=== PATIENT | female | born 1990 | race Caucasian/White ===

== ENCOUNTER → 2017-08-16 | Outpatient (CLI) | payer BC ==
[2017-08-16 16:41] LABS: HEMATOCRIT 28.5 % (37-47)
[2017-08-16 18:02] LABS: URINE APPEARANCE CLEAR (CLEAR); URINE BILIRUBIN NEG (NEG); URINE COLOR YELLOW; URINE NITRITE NEG (NEG); URINE SPECIFIC GRAVITY 1.012 (1.000-1.030); UROBILINOGEN NEG (NEG)
[2017-08-16 18:04] LABS: MANUAL MICROSCOPIC REQUIRED? NO; REVIEW REQ? NO
[2017-08-16 18:58] LABS: GTGD 50 Grams
== END | disposition home or self-care (01) ==
LOC: C.LAB1850 14:47
PROVIDERS: ATTEND Obstetrics & Gynecology
DX: Z34.02 Encounter for supervision of normal first pregnancy, second trimester (principal)

== ENCOUNTER → 2017-09-12 | Outpatient (CLI) | payer BC ==
[2017-09-12 17:28] LABS: HEMATOCRIT 28.8 % (37-47); MEAN CELL VOLUME 91.1 fL (80-100); MEAN CORPUSCULAR HEMOGLOBIN 29.7 pg (25-34); MEAN CORPUSCULAR HGB CONC 32.6 g/dl (32-36); MEAN PLATELET VOLUME 10.3 fL (7.4-10.4); PLATELET COUNT 177 K/uL (130-400); RED BLOOD COUNT 3.16 M/uL (4.2-5.4); WHITE BLOOD COUNT 9.68 K/uL (4.8-10.8)
== END | disposition home or self-care (01) ==
LOC: C.LAB1850 16:18
PROVIDERS: ATTEND Obstetrics & Gynecology
DX: O28.1 Abnormal biochemical finding on antenatal screening of mother (principal); Z3A.00 Weeks of gestation of pregnancy not specified

== ENCOUNTER → 2017-09-16 | Outpatient (CLI) | payer BC ==
[2017-09-19 23:31] LABS: HCT 30.7 % (35.0-45.0); HEMOGLOBIN A2 2.5 % (1.8-3.5); MCH 30.9 pg (27.0-33.0); MCV 94.8 FL (80.0-100.0); RBC 3.24 Mill/uL (3.80-5.10); RDW 14.8 % (11.0-15.0)
== END | disposition home or self-care (01) ==
LOC: C.LAB1850 16:15
PROVIDERS: ATTEND Obstetrics & Gynecology
DX: O28.1 Abnormal biochemical finding on antenatal screening of mother (principal)

== ENCOUNTER 2017-10-25 01:43 | Inpatient (IN) | payer BC ==
[~2017-10-25] VITALS: Ht 170.2 cm; Wt 79.5 kg
[2017-10-25] MEDS ORDERED: LACTATED RINGER'S 1000ML 1,000 ML IV SCH (02:13)
[2017-10-25] MEDS ORDERED: LACTATED RINGER'S 1000ML 1,000 ML IV PRN (02:13)
[2017-10-25] MEDS ORDERED: FENTANYL CITRATE INJ 50 MCG/1 ML 2 ML VIAL ONE (02:14)
[2017-10-25] MEDS ORDERED: BUPIVACAINE 0.25% 30 ML VIAL ONE (02:14)
[2017-10-25] MEDS ORDERED: FENTANYL 2MCG/ML ROPIV 1.25MG/ML 100ML BAG EPI ONE (02:14)
[2017-10-25] MEDS ORDERED: EpHEDrine SULFATE INJ 50 MG/ML AMP ONE (02:14)
[2017-10-25 02:33] LABS: HEMATOCRIT 35.8 % (37-47); MEAN CELL VOLUME 90.6 fL (80-100); MEAN CORPUSCULAR HEMOGLOBIN 29.1 pg (25-34); MEAN CORPUSCULAR HGB CONC 32.1 g/dl (32-36); PLATELET COUNT 173 K/uL (130-400); RED BLOOD COUNT 3.95 M/uL (4.2-5.4); WHITE BLOOD COUNT 11.63 K/uL (4.8-10.8)
[2017-10-25] MEDS ORDERED: LACTATED RINGER'S 1000ML 500 ML IV PRN (03:46)
[2017-10-25] MEDS ORDERED: NALOXONE HCL INJ 1 MG in SODIUM CHLORIDE 0.9% 1000ML 1,000 ML IV PRN (03:46)
[2017-10-25] MEDS ORDERED: DiphenhydrAMINE HCL 50 MG/ML VIAL IV PRN (04:00)
[2017-10-25] MEDS ORDERED: FENTANYL 2MCG/ML ROPIV 1.25MG/ML 100ML BAG EPI PRN (04:00)
[2017-10-25] MEDS ORDERED: NALBUPHINE HCL INJ 10 MG/ML AMP IV PRN (04:00)
[2017-10-25] MEDS ORDERED: EpHEDrine SULFATE INJ 50 MG/ML AMP IV PRN (04:00)
[2017-10-25] MEDS ORDERED: NALOXONE HCL INJ 0.4 MG/1 ML VIAL/CARP IV PRN (04:00)
[2017-10-25 04:08] VITALS: Ht 170.2 cm; Wt 79.5 kg
[2017-10-25] MEDS ORDERED: PREN-83 (04:09)
[2017-10-25] MEDS ORDERED: PATIENT'S ALLERGY INFO NEEDS ENTERED SCH (04:15)
[2017-10-25] MEDS ORDERED: OXYTOCIN 30 UNITS/500ML NSS IV ONE (07:59)
[2017-10-25] MEDS ORDERED: ACETAMINOPHEN/CODEINE 300/30MG TAB PO PRN (11:30)
[2017-10-25] MEDS ORDERED: ACETAMINOPHEN 325 MG TAB PO PRN (11:30)
[2017-10-25] MEDS ORDERED: SUPERCREAM 0.870 % 15GM JAR EXT PRN (11:30)
[2017-10-25] MEDS ORDERED: LANOLIN OINT EXT PRN ×2 (11:30)
[2017-10-25] MEDS ORDERED: BENZOCAINE 20% AER SPR 82.5 GM CAN EXT PRN (11:30)
[2017-10-25] MEDS ORDERED: OXYTOCIN 30 UNITS/500ML NSS IV PRN (11:30)
[2017-10-25] MEDS ORDERED: HYDROCORTISONE ACETATE 25 MG SUPP PR PRN (11:30)
--- NOTE | 2017-10-25 11:53 | DELIVERY SUMMARY ---
DATE OF OPERATION: 10/25/2017 FINDINGS: Viable female with Apgars of 8 and 9. Baby delivered spontaneously over midline second degree laceration with bilateral second degree periurethral tears. Cord gases and cord blood samples obtained. Placenta delivered spontaneously. Lacerations were repaired in routine fashion. ESTIMATED BLOOD LOSS: 300 mL. LABOR NOTE: The patient is a 27-year-old 1, para 0 with an EDC of 04 November at 38+ weeks gestational age presented to labor and delivery in active labor. The patient had spontaneous rupture of membranes with subsequent onset of contractions. The patent's course remarkable for anemia evaluated by hematology. Hematology did not feel aggressive iron resuscitation was indicated. Laboratory for the showed blood type of O negative, antibody negative. She received RhoGAM on 16 August. Hepatitis B negative. She declined a quad screen. She had a normal 1-hour Glucola at 16 and a 28 weeks and a negative third trimester beta strep culture. Upon admission, the patient was admitted. She received an epidural from the anesthesia. Delivering physician assumed care at the initiation of her second stage. The patient pushed for approximately 2 hours delivering the viable female infant. Cord was clamped and cut. Cord gases, cord blood samples obtained. Placenta was delivered spontaneously. Inspection of the perineum showed bilateral second degree periurethral tears and a midline second degree laceration. These were all repaired with 4-0 Vicryl in a routine fashion. Estimated blood loss 300 mL. Sponge and needle count was correct. I attest to the content of the Intraoperative Record and any orders documented therein. Any exception s are noted below.
--- NOTE | 2017-10-25 11:57 | Anesthesia Procedure Note ---
Anesthesia Epidural Removal Nt Date & Time Oct 25, 2017 at 11:57 Vital Signs Pain Intensity: 0.0 Notes Mental Status: alert / awake / arousable, participated in evaluation Nausea / Vomiting: adequately controlled Pain: adequately controlled Airway Patency, RR, SpO2: stable & adequate BP & HR: stable & adequate Hydration State: stable & adequate Neuraxial Anesthesia: was administered Anesthetic Complications: no major complications apparent, pt satisfied with anesthetic care Epidural: removed without complications, with tip intact
[2017-10-25 13:30] VITALS: BP 111/69; PULSE 80; TEMP 36.8; O2SAT 96
[2017-10-25] MEDS: IBUPROFEN 600 MG TAB PO PRN ×3 (13:39→21:26)
[2017-10-25 15:30] VITALS: BP 120/74; PULSE 88; TEMP 36.7
[2017-10-25 18:45] VITALS: BP 111/70; PULSE 82; TEMP 36.6
[2017-10-25] MEDS: DOCUSATE SODIUM 100 MG CAP PO SCH (21:24)
[2017-10-26 00:55] VITALS: BP 105/56; PULSE 62; TEMP 36.6
[2017-10-26 04:30] VITALS: BP 106/64; PULSE 76; TEMP 36.5
[2017-10-26] MEDS: IBUPROFEN 600 MG TAB PO PRN ×3 (04:33→13:18)
[2017-10-26 07:03] LABS: HEMATOCRIT 27.2 % (37-47)
--- NOTE | 2017-10-26 07:32 | Progress Note ---
Subjective Oct 26, 2017. Subjective conversation w/ patient, physical exam, chart review, lab review Ambulation: ambulating normally Voiding: no voiding problems Passing Gas: Yes Diet Tolerance: Regular Diet Lochia: Moderate Feeding Type: Bottle Feeding Pain: controlled Review of Systems Respiratory: No shortness of breath Cardiac: No chest pain Abdomen: No nausea, No vomiting Female : No dysuria Objective Vital Signs Date Time Temp Pulse Resp B/P (MAP) Pulse Ox O2 Delivery O2 Flow Rate FiO2 10/26/17 04:30 36.5 76 16 106/64 (78) Room Air 10/26/17 00:55 Room Air 10/26/17 00:55 36.6 62 16 105/56 (72) Room Air 10/25/17 18:45 36.6 82 20 111/70 (84) Room Air 10/25/17 15:30 Room Air 10/25/17 15:30 36.7 88 20 120/74 (89) Room Air 10/25/17 13:30 96 Room Air 10/25/17 13:30 36.8 80 20 111/69 (83) 96 Room Air Physical Exam General Appearance: WELL-APPEARING, WD/WN, NO APPARENT DISTRESS Respiratory/Chest: lungs clear, normal breath sounds, no respiratory distress Cardiovascular: regular rate, rhythm Abdomen: normal bowel sounds, soft Fundus: Firm, Tender (appropriately tender), Relation to Umbilicus (1 below U) Extremities: non-tender, normal inspection Laboratory Results Last 24 Hours Test 10/26/17 06:50 Hemoglobin 9.0 g/dL Hematocrit 27.2 % Assessment and Plan Post- Day#: 1 Continue Routine Care: Vital signs reviewed and wnl. Hgb reviewed 11.5 on admission, (9.0 today). Stable. Blood type O -, GBS -, RI. Pt doing well clinically. Encourage ambulation, . Resume regular diet. Control pain with motrin/tylenol. Monitor lochia. Continue routine post care. Anticipate discharge tomorrow. ALONDRA OSBORN FMR PGY 1. Resident Physician Supervision Note: I interviewed and examined the patient. Discussed with Dr. Osborn and agree with findings and plan as documented in the note. Any exceptions or clarifications are listed here: Doing well, may be interested in d/c later this PM, will re-access then. Documented By: King Mustafa Resident Tracking Resident Involvement: Resident Care Provided Care Provided: OB Delivery
[2017-10-26] MEDS: DOCUSATE SODIUM 100 MG CAP PO SCH (07:36)
--- NOTE | 2017-10-26 07:56 | Discharge Instructions ---
Discharge Instructions Date of Service Oct 26, 2017. Admission Reason for Admission: LABOR Discharge Discharge Diagnosis / Problem: Spontaneous Vaginal Delivery Discharge Goals Goal(s): Routine recovery after delivery Medications Continue Dispensed Medications: supercream, dermaplast, tucks, lansinoh Activity Recommendations Activity Limitations: per Instructions/Follow-up section . Instructions / Follow-Up Instructions / Follow-Up ACTIVITY RECOMMENDATIONS: * Gradual return to full activity over the next 2-3 weeks. * No lifting - nothing heavier than baby over the next 2-3 weeks. * Do not engage in vigorous exercise, sexual activity or sports until cleared by your physician. * Do not drive or operate any motorized equipment until cleared by your physician. * You may shower/bathe daily. MEDICATIONS: For discomfort or pain, you may use Acetaminophen (Tylenol), Ibuprofen (Advil), or Naproxen (Aleve) following the package directions. For constipation you may use Colace following the package directions. BREAST CARE: If you are not breast feeding: * Wear a supportive bra 24 hours a day for one to two weeks. * Avoid stimulating your breasts and nipples as much as possible during the first few weeks after delivery. * When taking a shower, have the warm water hit your back, not breasts. * When your breasts feel full, apply ice packs. Usually three to four times a day helps ease the discomfort. * Take a mild pain medication (Tylenol / Motrin) when you are uncomfortable. If breast feeding: * Use breast milk to lubricate nipples. Lansinoh cream may be used for sore nipples. You do not need to remove cream prior to breast feeding. If using a different brand of cream, check the label for directions regarding removal of cream prior to nursing. * Wear a supportive bra. * If having problems with breasts or breast feeding, call a contract consultant or your health care provider. EPISIOTOMY CARE: After delivery, if you have an episiotomy (stitches), the following steps will ease discomfort and aid healing. * For the first 24 hours after delivery, place ice packs next to your episiotomy to help reduce swelling. * After the first 24 hour-period, sitz baths, either portable or in the tub, are suggested. A shower with a shower arm sprayed over the episiotomy may be comforting. * Eleanor care should be done after each voiding and bowel movement. Squirt warm water from a plastic bottle over the perineum (region of the body between the anus and urinary opening) and pat dry. * Use Dermoplast to ease discomfort. Shake container. [place] directly over the episiotomy. Place a Tucks on a clean sanitary pad next to your episiotomy. SPECIAL CARE INSTRUCTIONS: When you are discharged from the hospital, it is important for you to follow the instructions listed below: * During the first week at home, you should be able to care for yourself and your baby. In addition, the usual light household activities are encouraged. * Limit your activities to the way you feel. Do not try to clean the house or move furniture. Be sensible. * If you actively engage in sports and have done so up until the time of your delivery, you may resume these activities as soon as you feel able. This may take up to one month or even longer. Use good judgment. * Continue to take your vitamins for at least six weeks after the of your baby. * Your diet need not be limited unless you were on a special diet before your delivery. Breast-feeding mothers need around 2500 calories per day and at least 64-80 ounces of fluid per day (8 to 10 glasses). * You should eat foods from the four major food groups. Crash diets or fad diets are to be avoided. Eating lean meats, fresh fruits and vegetables, low-fat dairy products, high fiber foods and a regular exercise program, will help you get back to your pre- weight without putting your health at risk. * Constipation is sometimes a problem after delivery. Take a mild laxative as needed. If breast feeding, Milk of Magnesia is acceptable to use. You may use a suppository or Fleets enema if no episiotomy. * A daily shower or tub bath is suggested. Be sure to thoroughly and gently dry the perineum. * A bloody vaginal discharge will usually continue until around four weeks post . A small amount of bleeding may continue for as long as six weeks. Vaginal discharge changes from the bright red bleeding after delivery to pink then brownish and finally yellowish-pink before becoming white and disappearing. * Bleeding may increase with activity. Your first period may come in 4-8 weeks. If you are breast feeding, your period may be delayed even longer. * [address] (sex) can begin whenever both you and your partner feel comfortable and do not have any form of genital infection. It is recommended that you wait at least six weeks for internal and external healing to occur. If you have questions, please talk to your health care practitioner. A condom should be used to prevent infection and . * Foreplay, gentle intercourse and lubrication is very important the first several times to prevent pain. A water-based lubricant such as K-Y jelly or Astroglide may be used. * If you have RH negative blood and your baby is RH positive, you will receive RHOGAM by injection prior to discharge. The nurse will give you a card to keep with you that has the date and place that you received RHOGAM after delivery. * During your care, you had a Rubella screen done to check for the presence of rubella antibodies in your blood. If your test was negative, you will receive a Rubella vaccine prior to discharge. This vaccine may cause a fever, soreness at the injection site and flu-like symptoms. If these symptoms persist, notify your health care practitioner. is not advised for one month after a Rubella vaccine. * Verbalizes understanding of car seat law as reviewed with patient nursing. * Car Seat hand-out given and reviewed with patient by nursing. * Shaken baby information reviewed with patient by nursing. Call you doctor if: * Heavy bleeding (saturating several pads an hour) or passing clots the size of your fist. * A fever >101 degrees F (38.3 degrees C) on two occasions four hours apart and /or chills. * Unusual pain in the pelvic or vaginal areas. * "Baby Blues" lasting longer than two weeks. If you have any questions or concerns, call your health care practitioner at . FOLLOW UP VISIT: * Please call the office at to schedule a 6 week examination. It is important you keep this appointment. It is important for you to make arrangements for either yearly or twice yearly check-ups thereafter. Current Hospital Diet Patient's current hospital diet: Regular Diet Discharge Diet Recommended Diet: Regular Diet Pending Studies Studies pending at discharge: no Medical Emergencies . Who to Call and When: Medical Emergencies: If at any time you feel your situation is an emergency, please call [phone] immediately. . Non-Emergent Contact Non-Emergency issues call your: Primary Care Provider . . "Provider Documentation" section prepared by Georgiana Osborn. . VTE Core Measure Inpt VTE Proph given/why not?: Treatment not indicated
[2017-10-26 08:00] VITALS: BP 104/71; PULSE 103; TEMP 36.3
[2017-10-26] MEDS ORDERED: PRENATAL VITAMIN TAB PO SCH (08:00)
[2017-10-26 11:45] VITALS: BP 102/65; PULSE 69; TEMP 36.7
[2017-10-26 15:10] VITALS: BP 103/60; PULSE 73; TEMP 36.6
[2017-10-26 17:00] VITALS: BP_DIAS 60; PULSE 73; TEMP 36.6
[2017-10-26] MEDS ORDERED: BISACODYL 5 MG TABEC PO SCH (20:00)
[2017-10-27] MEDS ORDERED: FERROUS SULFATE 325 MG TAB PO SCH (08:00)
== END 2017-10-26 17:05 | disposition home or self-care (01) | DRG 775 ==
LOC: C.OPB 01:43 → C.LD 01:43 → C.OPB 02:14 → C.LD 02:14 → C.OBG 13:19
PROVIDERS: ADMIT Obstetrics & Gynecology; ATTEND Obstetrics & Gynecology
PROC: 0KQM0ZZ Repair Perineum Muscle, Open Approach (ICD-10-PCS; principal; 2017-10-25)
PROC: 10E0XZZ Delivery of Products of Conception, External Approach (ICD-10-PCS; principal; 2017-10-25)
PROC: 0TQDXZZ Repair Urethra, External Approach (ICD-10-PCS; principal; 2017-10-25)
DX: O70.1 Second degree perineal laceration during delivery (principal); O71.82 Other specified trauma to perineum and vulva; Z37.0 Single live birth; Z3A.38 38 weeks gestation of pregnancy

== ENCOUNTER 2020-02-15 14:30 | Inpatient (IN) ==
[2020-02-15] MEDS ORDERED: OXYTOCIN 30 UNITS/500 ML BAG IV PRN (14:42)
[2020-02-15] MEDS ORDERED: LACTATED RINGER'S 1,000 ML IV PRN (14:42)
[2020-02-15 15:16] LABS: Hematocrit (blood only) 31.3 % (37-47); Mean Corpuscular Hemoglobin 29.1 pg (25-34); Mean Platelet Volume 9.7 fL (7.4-10.4); Platelet Count 284 K/uL (130-400); RDW Coefficient of Variation 13.1 % (11.5-14.5); RDW Standard Deviation 43.8 fL (36.4-46.3); Red Blood Count 3.44 M/uL (4.2-5.4); White Blood Count 8.03 K/uL (4.8-10.8)
[2020-02-15] MEDS ORDERED: ePHEDrine sulfate 50 MG/ML AMP ONE (15:32)
[2020-02-15] MEDS ORDERED: fentaNYL citrate 100 MCG/2 ML VIAL ONE (15:33)
[2020-02-15] MEDS ORDERED: BUPIVACAINE 0.25% 30 ML VIAL ONE (15:33)
[2020-02-15] MEDS ORDERED: fentaNYL 2MCG/ML ROPIV 1.25MG/ML 100 ML BAG EPI ONE (15:34)
--- NOTE | 2020-02-15 15:42 | Anesthesiology Consultation ---
Date of Service February 15, 2020 Assessment & Plan Chart Review Chart Review: Acceptable Risk for Surgery Consults Requested none ASA ASA2E Proposed Anesthesia Anesthesia Type: CSE Risk / Benefits Reviewed With: PT / POA / Parent / Guardian, Accepts Plan and Informed Consent Obtained History Height/Weight Height: 5 ft 7 in Weight: 74.843 kg Allergies Allergy/AdvReac Type Severity Reaction Status Date / Time No Known Drug Allergies Allergy Verified 02/11/20 16:56 Medications Home Medications Medication Instructions Recorded Confirmed Last Taken prenat.vits,karrie,drr-wbic-assmh 1 tab PO DAILY 07/20/19 02/15/20 Unknown Active Medications Generic Name Dose Route Start Last Admin Trade Name Freq PRN Reason Stop Dose Admin Lactated Ringer's 1,000 mls @ 125 mls/hr 02/15/20 14:42 02/15/20 14:45 Lr IV 02/17/20 14:41 999 mls/hr .Q8H PRN Administration L&D Protocol Protocol NPO Date Last Intake of Fluids: 02/15/20 Time Last Intake of Fluids: 14:30 Date Last Intake of Solids: 02/15/20 Time Last Intake of Solids: 11:00 Last Intake of Solids Comment: Chx nugget Past Medical History Medical History History of anemia History of varicella vaccination Hx of migraine headaches Need for rhogam due to Rh negative mother Exercise / Class Metabolic Activity II 4-5 Yardwork/Stairs/Walk up hill Past Family History Family History Mother Hyperthyroidism Past Surgical History Surgical History S/P anterior cruciate ligament surgery S/P wisdom tooth extraction Past Anesthesia History No Hx of Anesthesia Complications and No Family Hx of Anesthesia Complications History of PONV No Hx of PONV and No Hx of Motion Sickness Social History Smoking Status: Never smoker Hx Alcohol Use: No Hx Substance Use: No substance use type: does not use Physical Exam Vital Signs Last Vital Signs Temp 37.1 C 02/15/20 14:50 Pulse 83 02/15/20 15:23 Resp 22 02/15/20 15:00 BP 140/64 02/15/20 15:23 Pulse Ox 89 L 02/15/20 15:14 ENMT Mouth: no TMJ abnormality Thyromental Distance: > or= 3.5 Finger Breadths Mallampati Class: II Neck normal visual inspection and trachea midline; neck extension not limited Respiratory normal respiratory effort Auscultation: lungs clear to auscultation bilaterally Cardiovascular Rate/Rhythm: regular rate and regular rhythm Heart Sounds: no murmur Musculoskeletal Spine: normal cervical ROM Extremities: full ROM of extremities Neurologic moves all extremities Psychiatric Orientation: alert and oriented x 3 Testing Laboratory Results 02/15/20 15:01
[2020-02-15 15:43] LABS: Mean Corpuscular Hgb Conc 31.9 g/dL (32-36)
[2020-02-15] MEDS ORDERED: DiphenhydrAMINE HCL 50 MG/ML VIAL IV PRN (16:39)
[2020-02-15] MEDS ORDERED: NALBUPHINE HCL INJ 10 MG/ML AMP IV PRN (16:39)
[2020-02-15] MEDS ORDERED: ONDANSETRON INJ 2 MG/ML 2 ML VIAL IV PRN (16:39)
[2020-02-15] MEDS ORDERED: ePHEDrine sulfate 50 MG/ML AMP IV PRN (16:39)
[2020-02-15] MEDS ORDERED: NALOXONE HCL 0.4 MG/1 ML VIAL/CARP IV PRN (16:39)
[2020-02-15] MEDS ORDERED: NALOXONE HCL 1 MG in SODIUM CHLORIDE 0.9% 1000ML 1,000 ML IV PRN (16:39)
[2020-02-15] MEDS ORDERED: PROMETHAZINE HCL 25 MG in SODIUM CHLORIDE 0.9% 50 ML IV PRN (16:39)
--- NOTE | 2020-02-15 16:39 | Anesthesiology Progress Note ---
Date of Service February 15, 2020 Anesthesia Post Procedure Vital Signs Vital Signs: Temp Pulse Resp BP Pulse Ox 02/15/20 16:35 82 121/73 02/15/20 16:33 87 114/67 02/15/20 16:31 87 123/71 99 02/15/20 16:29 133 H 100/42 L 02/15/20 16:27 86 115/69 02/15/20 16:26 84 100 02/15/20 16:25 87 116/59 L 02/15/20 16:23 82 123/63 02/15/20 16:21 82 122/59 L 98 02/15/20 16:17 101 H 122/67 02/15/20 16:16 93 H 99 02/15/20 16:15 81 121/65 02/15/20 16:13 90 118/65 02/15/20 16:11 85 123/66 99 02/15/20 16:08 97 H 128/59 L 02/15/20 16:07 73 91 02/15/20 16:06 74 121/61 99 02/15/20 16:03 96 H 116/56 L 02/15/20 16:01 102 H 127/74 98 02/15/20 15:57 87 89 L 02/15/20 15:56 106 H 99 02/15/20 15:51 97 H 97 02/15/20 15:46 97 H 99 02/15/20 15:23 83 140/64 02/15/20 15:14 112 H 89 L 02/15/20 15:11 110 H 87 L 02/15/20 15:09 105 H 81 L 02/15/20 15:06 90 100 02/15/20 15:01 90 100 02/15/20 15:00 22 02/15/20 14:56 104 H 100 02/15/20 14:51 100 H 100 02/15/20 14:50 37.1 C 18 02/15/20 14:48 36.9 C 20 02/15/20 14:46 103 H 100 Notes Mental Status: alert / awake / arousable and participated in evaluation Nausea / Vomiting: adequately controlled Pain: adequately controlled Airway Patency, RR, SpO2: stable & adequate BP & HR: stable & adequate Hydration State: stable & adequate Neuraxial Anesthesia: was administered and see Notes below (CSE/epidural dosing just starting to resolve) Anesthetic Complications: no major complications apparent and Pt Satisfied with anesthetic care Notes:
--- NOTE | 2020-02-15 16:59 | Delivery Summary ---
Vaginal Delivery Summary Date of Service February 15, 2020 Vaginal Delivery Summary DIAGNOSES: 1. Pena intrauterine at 37wk 1d gestation. 2. Spontaneous onset of labor. 3. Group B Streptococcus Neg. PROCEDURE: Spontaneous vaginal delivery without laceration. SURGEON: Keshia Zamudio MD. SUPERVISOR CAP AND HAT PRODUCTION: None. ESTIMATED BLOOD LOSS: 250 mL. COMPLICATIONS: None. PLACENTA: Spontaneous and intact with a 3-vessel cord. DISPOSITION: Stable to labor and delivery. DESCRIPTION: The patient pushed well and brought the head to in OA position. The 's head was allowed to deliver with contraction force and no further active pushing, with the perineum protected during this time. The shoulders delivered easily with a maternal pushing effort. There was no nuchal cord. The right shoulder was anterior. The shoulders and body delivered without any difficulty, and the infant was placed on the maternal abdomen. It was vigorous and moving all extremities, and making respiratory efforts. The cord was doubly clamped by the MD and then cut by the FOB. Gentle traction on the umbilical cord met with absolutely no resistance, and the cord appeared to terminate in membrane without any associated placental tissue, suspicious for velamentous insertion. Fundal massage and observation were alternated for 20 minutes without any progress towards delivery of the placenta. Bedside ultrasound showed the placenta at the fundus, without any collection of blood behind it or any signs of from the uterus. The cervix, vagina and perineum were examined and were found to be without defect requiring repair. Lochia was small. A decision was made to request an epidural be placed to allow for attempt of bedside D&C under ultrasound guidance for placental extraction. See separate operative report for details.
--- NOTE | 2020-02-15 17:05 | Operative Report ---
PG Post Operative Report Pre & Post Diagnosis Retained placenta I identified the patient and participated in the time-out.: Yes Procedure Ultrasound guided D&C Surgeon Keshia Zamudio MD Contact Officer None Estimated Blood Loss 50 Findings Consistent with Post-Op Diagnosis Specimens Placenta Anesthesia Type Labor Epidural Complications none Disposition Accompanied Patient To Recovery: Yes Disposition: L&D Description of Procedure Mary remained in her labor room after delivery, with known retained placenta. She was given a spinal/epidural by Dr. Grimm and tested to ensure adequate anesthesia. The ultrasound was used to confirm the placenta remained firmly attached at the fundus towards patient R side. Gentle manual exploration revealed it was not possible to grasp and remove the placenta. A peterson speculum was used to visualize the cervix, whose anterior lip was grasped using a ring forcep. Watching on US, the banjo curette was introduced to the fundus, and used to make single passes along the uterine wall, retrieving multiple pieces of placenta and membrane of various sizes, ranging from shreds of membrane only to pieces of obvious placenta that were baseball-sized. This was continued until good cry on all lee and ultrasound showed a thin EL / empty cavity, and the uterus was well contracted. Lochia remained minimal. Patient was in stable condition in L&D at the end of the procedure. I attest to the content of the Intraoperative Record and any orders documented therein. Any exceptions are noted below.
[2020-02-15] MEDS ORDERED: AMPICILLIN/SULBACTAM SOD 3,000 MG in 0.9 % SODIUM CHLORIDE 100 ML IV ONE (17:15)
[2020-02-15] MEDS ORDERED: SUPERCREAM 0.870% 15 GM JAR EXT PRN (17:52)
[2020-02-15] MEDS ORDERED: ACETAMINOPHEN 325 MG TAB PO PRN (17:52)
[2020-02-15] MEDS ORDERED: BENZOCAINE 20% AER SPR 82.5 GM CAN EXT PRN (17:52)
[2020-02-15] MEDS ORDERED: HYDROCORTISONE ACETATE 25 MG SUPP PR PRN (17:52)
[2020-02-15] MEDS ORDERED: DIPHTHERIA/TETANUS/PERTUSSIS 0.5 ML SYR/VIAL IM ONE (17:52)
[2020-02-15] MEDS ORDERED: OXYCODONE/ACETAMINOPHEN 5mg/325mg TAB PO PRN (17:52)
[2020-02-15] MEDS: DOCUSATE SODIUM 100 MG CAP PO SCH (21:02)
[2020-02-15] MEDS: IBUPROFEN 600 MG TAB PO PRN (21:04)
--- NOTE | 2020-02-15 21:33 | Anesthesia Procedure Note ---
Date of Service February 15, 2020 Anesthesia Post Epidural Note Vital Signs Vital Signs: Temp Pulse Resp BP Pulse Ox 37 C 74 18 118/73 98 02/15/20 19:40 02/15/20 19:40 02/15/20 19:40 02/15/20 19:40 02/15/20 18:41 Notes Mental Status: alert / awake / arousable and participated in evaluation Nausea / Vomiting: adequately controlled Pain: adequately controlled Airway Patency, RR, SpO2: stable & adequate BP & HR: stable & adequate Hydration State: stable & adequate Neuraxial Anesthesia: was administered and sensory block resolved Anesthetic Complications: no major complications apparent and Pt Satisfied with anesthetic care Epidural: Removed without complications and With tip intact
--- NOTE | 2020-02-16 06:01 | Obstetrical Progress Note ---
Date of Service <Esther Rosas DO - Last Filed: 02/16/20 06:45> February 16, 2020 Assessment & Plan <Esther Rosas DO - Last Filed: 02/16/20 06:45> (1) Encounter for care and examination after delivery: 29 yo PPD#1 following and D+C for retained placenta. No complaints this am and doing well. - Will continue routine care. - Following d/c will have appointment with Dr. Zamudio. Subjective <Esther Rosas - Last Filed: 02/16/20 06:45> 29 yo female ; PPD # 1 following vaginal delivery at 37.2weeks; doing well this AM; no abdominal cramping/pain; voiding well; tolerating meals overnight, able to ambulate some within the room. Some persistent spotting this morning but improved from yesterday. Some cramping in her abdomen intermittently. Is bottle feeding which is going well. Review of Systems Constitutional: denies fever, chills, sweats, headache Respiratory: denies SOB, difficulty breathing Cardiac: denies CP, chest palpitations, chest pressure Breast: denies breast pain : denies dysuria Physical Exam <Esther Rosas DO - Last Filed: 02/16/20 06:45> General: patient is alert and oriented, in NAD Cardiac: +S1/S2, no murmurs rubs or gallops Respiratory: lungs CTA b/l, anteriorly and posteriorly, no wheezes rales or rhonchi, no increased work of breathing, symmetric chest rise, no respiratory distress Abdomen: soft, NT, +bowel sounds Uterus: uterine fundus firm, palpable below the level of the umbilicus Lower Extremities: no LE edema or swelling, no deep calf pain, Gosia's sign negative b/l Results & Data <DO Jeannie Zaragoza Last Filed: 02/16/20 06:45> Vital Signs (Past 12 Hours) Vital Signs Temp Pulse Pulse Resp BP BP Pulse Ox 02/16/20 05:40 36.5 C 66 16 106/66 02/15/20 23:40 36.8 C 67 18 115/72 02/15/20 19:40 37 C 74 18 118/73 02/15/20 18:56 86 114/70 02/15/20 18:41 106 H 115/72 98 02/15/20 18:36 96 H 98 02/15/20 18:31 94 H 98 02/15/20 18:27 96 H 118/74 02/15/20 18:26 36.8 C 86 20 98 02/15/20 18:21 85 98 02/15/20 18:16 86 98 02/15/20 18:12 97 H 115/58 L 02/15/20 18:11 98 H 98 02/15/20 18:06 82 98 Laboratory Results Laboratory Results - last 24 hr 02/15/20 15:01 WBC 8.03 RBC 3.44 L Hgb 10.0 L Hct 31.3 L MCV 91.0 MCH 29.1 MCHC 31.9 L RDW Std Deviation 43.8 RDW Coeff of Caryl 13.1 Plt Count 284 MPV 9.7 Medications Administered Current Medications Acetaminophen (Tylenol) 650 mg PO Q6H PRN PRN Reason: Pain/ALARCON/Fever Stop: 03/16/20 17:51 Benzocaine (Dermoplast Pain Relieving [place]) 1 appln EXT PRN PRN PRN Reason: Perineal Discomfort Stop: 03/16/20 17:51 Last Admin: 02/15/20 18:57 Dose: 82.5 appln Documented by: Cocaine HCl (Supercream 0.870%) 1 gm EXT BID PRN PRN Reason: Hemorrhoidal Inflammation Stop: 02/29/20 17:51 Docusate Sodium (Colace) 100 mg PO DAILY@08,21 OPAL Stop: 03/16/20 20:59 Last Admin: 02/15/20 21:02 Dose: 100 mg Documented by: Hydrocortisone (Anusol Hc) 25 mg TX BID PRN PRN Reason: Hemorrhoidal Inflammation Stop: 03/16/20 17:51 Lactated Ringer's (Lr) 1,000 mls @ 125 mls/hr IV .Q8H PRN; Protocol PRN Reason: L&D Protocol Stop: 02/17/20 14:41 Last Infusion: 02/15/20 16:50 Dose: Infused Documented by: Oxytocin (Pitocin) 30 units in 500 mls @ 333.333 mls/hr IV .Q1H30M PRN; Protocol PRN Reason: Bleeding Control Stop: 03/16/20 14:41 Last Titration: 02/15/20 17:58 Dose: Infused Documented by: Ibuprofen (Motrin) 600 mg PO Q4H PRN PRN Reason: Pain/ALARCON/Cramping/Fever Stop: 03/16/20 17:51 Last Admin: 02/15/20 21:04 Dose: 600 mg Documented by: Oxycodone/Acetaminophen (Percocet 5mg/325mg) 1 tab PO Q4H PRN PRN Reason: Pain not relieved by... Stop: 02/29/20 17:51 Prenat Multivit/Placer/Iron/Folic Ac ( Vitamin) 1 tab PO DAILY@08 OPAL Stop: 03/17/20 07:59 <Keshia Zamudio MD - Last Filed: 02/16/20 07:32> Co-Signing Physician Notes I have reviewed the resident's note and examined the patient myself, and agree with the note above. Resident Activity Tracking <Esther Rosas DO - Last Filed: 02/16/20 06:45> Resident Involvement: Resident Care Provided Care Provided: OB Delivery
[2020-02-16 07:51] LABS: Hematocrit (blood only) 28.8 % (37-47); Hemoglobin 9.5 g/dL (12.0-16.0); Mean Corpuscular Hemoglobin 29.8 pg (25-34); Mean Corpuscular Volume 90.3 fL (80-100); Mean Platelet Volume 9.9 fL (7.4-10.4); Platelet Count 238 K/uL (130-400); RDW Coefficient of Variation 13.2 % (11.5-14.5); RDW Standard Deviation 43.2 fL (36.4-46.3); Red Blood Count 3.19 M/uL (4.2-5.4); White Blood Count 9.74 K/uL (4.8-10.8)
[2020-02-16] MEDS ORDERED: PRENATAL VITAMIN 1 TAB PO SCH (08:00)
[2020-02-16] MEDS: DOCUSATE SODIUM 100 MG CAP PO SCH (09:15)
[2020-02-16] MEDS: IBUPROFEN 600 MG TAB PO PRN (15:13)
--- NOTE | 2020-02-17 10:46 | Discharge Summary ---
Date of Service February 17, 2020 Discharge Data Consultations 02/15/20 14:42 Consult Anesthesiology Stat Hospital Course (1) Retained placenta or membranes without hemorrhage: Patient underwent normal other than placenta failing to release in 20 min and suspicious for velamentous cord insertion. She was then given an epidural and a bedside D&C was done to retrieve placenta, which was successful. No complications and no PPH. Routine PP follow up is planned. Coding Level of Care Code None Diagnoses Retained placenta or membranes without hemorrhage O73.0
== END 2020-02-16 16:14 | disposition home or self-care (01) | DRG 807 ==
LOC: OPB 14:30 → 4N 14:30 → 4S1 14:42 → 4S2 19:05

== ENCOUNTER 2022-04-06 11:50 | Inpatient (IN) ==
[2022-04-06] MEDS: IBUPROFEN 600 MG TAB PO PRN ×2 (12:00→21:43)
[2022-04-06] MEDS ORDERED: OXYTOCIN 30 UNITS/500ML NSS ONE (12:01)
[2022-04-06] MEDS: OXYTOCIN 30 UNITS/500 ML BAG IV PRN ×2 (12:10→13:20)
[2022-04-06] MEDS ORDERED: BENZOCAINE 20% AER SPR 82.5 GM CAN EXT PRN (12:17)
[2022-04-06] MEDS ORDERED: HYDROCORTISONE ACETATE 25 MG SUPP PR PRN (12:17)
[2022-04-06] MEDS ORDERED: DIPHTHERIA/TETANUS/PERTUSSIS 0.5 ML SYR/VIAL IM ONE (12:17)
[2022-04-06] MEDS ORDERED: ACETAMINOPHEN 325 MG TAB PO PRN (12:17)
[2022-04-06] MEDS ORDERED: oxyCODONE/ACETAMINOPHEN 5mg/325mg TAB PO PRN (12:17)
--- NOTE | 2022-04-06 12:21 | History & Physical Report ---
Date of Service April 06, 2022 History of Present Illness Chief Complaint: Labor Primary Care Provider: Bakari Mascorro MD Admitted with overnight contractions, ROM @ 11am, 9+cm on arrival, urge to push. FHT Cat 1 on arrival. Declined IV placement initially but accepted after counseling. Declined pain management. Rapidly progressed through delivery; see vaginal delivery note for details. Allergies Allergy/AdvReac Type Severity Reaction Status Date / Time No Known Drug Allergies Allergy Verified 04/02/22 15:41 Home Medications Medication Instructions Recorded Confirmed Type bupropion HCl [Wellbutrin] 1 tab PO DAILY 08/30/21 04/02/22 History prenat.vits,karrie,iga-[id number] 1 tab PO DAILY 08/30/21 04/02/22 History Patient History Medical History Depression History of anemia History of varicella vaccination Hx of migraine headaches Missed with demise before 20 completed weeks of gestation Need for rhogam due to Rh negative mother Retained placenta or membranes without hemorrhage Surgical History S/P anterior cruciate ligament surgery S/P wisdom tooth extraction Family History Mother Hyperthyroidism Social History Smoking Status: Never smoker Hx Alcohol Use: No Hx Substance Use: No Preferred Language: Latvian Communication Ability: Effective Greenskeeper Laborer Required: No Beliefs That Will Affect Care: None marital status: Single marital status details: Jeffrey Campa (34) [phone] Current Living Situation: Significant Other Current Living Situation Comment: lives with spouse,2 daughters, step daughter, no pets current occupational status: employed 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 Feels Safe at Home: Yes Assistive Devices: None Physical Exam Genitourinary: 9/100/0 on my initial exam. Involuntarily pushing. FHT Cat 1 [place] Q2-3 Fluid leaking, clear with vernix in it. Results & Data ([facility]) Vital Signs (Past 12 Hours) Vital Signs Pulse BP 04/06/22 12:16 120 H 123/93 04/06/22 11:59 133 H 144/93 H Coding Level of Care Code None
--- NOTE | 2022-04-06 12:22 | Delivery Summary ---
Vaginal Delivery Summary Date of Service April 06, 2022 Vaginal Delivery Summary DIAGNOSES: 1. Pena intrauterine at 39w4d gestation. 2. Spontaneous onset of labor. 3. Group B Streptococcus Neg. PROCEDURE: Spontaneous vaginal delivery without laceration. SURGEON: Keshia Zamudio MD. MASON FOREMAN/SUPERINTENDANT: None. ESTIMATED BLOOD LOSS: 250 mL. COMPLICATIONS: None. PLACENTA: Spontaneous and intact with a 3-vessel cord. DISPOSITION: Stable to labor and delivery. DESCRIPTION: The patient pushed well and brought the head to in DOA position. The infant's head was allowed to deliver with contraction force and no further active pushing, with the perineum protected during this time. There was no nuchal cord. The right shoulder was anterior. The shoulders and body delivered without any difficulty, and the was placed on the maternal abdomen. It was vigorous and moving all extremities, and making respiratory efforts. The cord was doubly clamped by the MD and then cut by the FOB. The placenta delivered spontaneously and was noted to be intact and with a 3VC. The cervix, vagina and perineum were examined and were found to be without defect requiring repair. The fundus was firm and lochia minimal immediately after delivery. [facility] Vaginal Delivery Charge Vaginal Delivery Codes: 01316 global code for the antepartum, delivery, and post-
[2022-04-06] MEDS ORDERED: LACTATED RINGER'S 1,000 ML IV SCH (12:30)
[2022-04-06] MEDS ORDERED: IBUPROFEN 600 MG TAB PO ONE (12:36)
[2022-04-06] MEDS: DOCUSATE SODIUM 100 MG CAP PO SCH (21:43)
[2022-04-07 06:25] LABS: Hematocrit (blood only) 30.9 % (37-47); Hemoglobin 10.2 g/dL (12.0-16.0); Mean Corpuscular Hemoglobin 30.8 pg (25-34); Mean Corpuscular Volume 93.4 fL (80-100); Mean Platelet Volume 10.9 fL (7.4-10.4); Platelet Count 160 K/uL (130-400); RDW Coefficient of Variation 13.8 % (11.5-14.5); RDW Standard Deviation 47.3 fL (36.4-46.3); Red Blood Count 3.31 M/uL (4.2-5.4); White Blood Count 9.68 K/uL (4.8-10.8)
--- NOTE | 2022-04-07 07:22 | Obstetrical Progress Note ---
Date of Service April 07, 2022 Assessment & Plan (1) state: day #1 meets criteria will discharge home later Subjective Ambulation: ambulating normally Voiding: no voiding problems Passing Gas:: Yes Diet Tolerance:: regular diet Lochia:: Small Results & Data ([facility]) Vital Signs (Past 12 Hours) Vital Signs Temp Pulse Resp BP Pulse Ox 04/07/22 03:38 97.7 F 63 16 100/58 L 96 04/06/22 22:58 98.2 F 72 16 103/56 L 98
[2022-04-07] MEDS ORDERED: PRENATAL VITAMIN 1 TAB PO SCH (08:00)
[2022-04-07] MEDS: DOCUSATE SODIUM 100 MG CAP PO SCH (08:35)
[2022-04-07] MEDS ORDERED: buPROPion XL 150 MG TABCR PO SCH (09:00)
== END 2022-04-07 13:45 | disposition home or self-care (01) | DRG 807 ==
LOC: OPB 11:50 → 4S1 11:52 → 4E2 16:37